=== PATIENT | female | born 1990 ===

== ENCOUNTER 2023-11-13 08:36 | Outpatient (CLI) | payer OTHER ==
[~2023-11-13 08:36] MED LIST: MEDROLPACK PO; METAXALONE800 MG PO
== END 2023-11-13 08:37 | disposition home or self-care (01) ==
LOC: PRENATAL 08:36
PROVIDERS: ATTEND Obstetrics & Gynecology Maternal & Fetal Medicine
DX: O35.9XX0 Maternal care for (suspected) fetal abnormality and damage, unspecified, not applicable or unspecified (principal); O35.3XX0 Maternal care for (suspected) damage to fetus from viral disease in mother, not applicable or unspecified; O44.00 Complete placenta previa NOS or without hemorrhage, unspecified trimester; O09.529 Supervision of elderly multigravida, unspecified trimester; Z3A.20 20 weeks gestation of pregnancy

== ENCOUNTER 2024-01-05 10:11 | Outpatient (CLI) | payer OTHER | END 2024-01-05 10:13 | disposition home or self-care (01) | LOC: PRENATAL 10:11 | PROVIDERS: ATTEND Obstetrics & Gynecology Maternal & Fetal Medicine | DX: O26.843 Uterine size-date discrepancy, third trimester (principal); O09.523 Supervision of elderly multigravida, third trimester; O34.219 Maternal care for unspecified type scar from previous cesarean delivery; O14.93 Unspecified pre-eclampsia, third trimester; O16.3 Unspecified maternal hypertension, third trimester; Z3A.28 28 weeks gestation of pregnancy ==

== ENCOUNTER 2024-02-04 10:41 | Outpatient (CLI) | payer OTHER ==
[2024-02-04] MEDS ORDERED: HUMULIN R100 UNIT/1 SUBCUTANEO (12:29)
== END 2024-02-04 10:42 | disposition home or self-care (01) ==
LOC: PRENATAL 10:41
PROVIDERS: ATTEND Obstetrics & Gynecology Maternal & Fetal Medicine
DX: O26.849 Uterine size-date discrepancy, unspecified trimester (principal); O36.8199 Decreased fetal movements, unspecified trimester, other fetus; O09.529 Supervision of elderly multigravida, unspecified trimester; O34.219 Maternal care for unspecified type scar from previous cesarean delivery; O14.90 Unspecified pre-eclampsia, unspecified trimester; O10.019 Pre-existing essential hypertension complicating pregnancy, unspecified trimester; Z3A.32 32 weeks gestation of pregnancy

== ENCOUNTER 2024-02-25 09:54 | Outpatient (CLI) | payer OTHER ==
[~2024-02-25 09:54] MED LIST changes: +HUMULIN R100 UNIT/1 SUBCUTANEO
== END 2024-02-25 09:59 | disposition home or self-care (01) ==
LOC: PRENATAL 09:54
PROVIDERS: ATTEND Obstetrics & Gynecology Maternal & Fetal Medicine
DX: O26.849 Uterine size-date discrepancy, unspecified trimester (principal); O36.8199 Decreased fetal movements, unspecified trimester, other fetus; O09.529 Supervision of elderly multigravida, unspecified trimester; O34.219 Maternal care for unspecified type scar from previous cesarean delivery; O14.90 Unspecified pre-eclampsia, unspecified trimester; O10.019 Pre-existing essential hypertension complicating pregnancy, unspecified trimester; O24.419 Gestational diabetes mellitus in pregnancy, unspecified control; Z3A.35 35 weeks gestation of pregnancy